=== PATIENT | female | born 1970 | race Caucasian/White ===

== ENCOUNTER 2019-07-19 17:55 | Emergency (ER) | payer MEDICARE, MEDICAID, SELFPAY ==
[2019-07-19] VITALS (7 sets, daily range): BP systolic 152–175; BP diastolic 109–131; PULSE 67–96; RESP 12–20; TEMP 36.7; O2SAT 95–99; BMI 49.6
--- NOTE | 2019-07-19 17:56 | XRR_ITS ---
PROCEDURE INFORMATION: Exam: XR Chest, 1 View Exam date and time: 07/19/2019 8:03 PM Age: 49 years old Clinical indication: Chest pain; Additional info: Cp TECHNIQUE: Imaging protocol: XR of the chest Views: 1 view. COMPARISON: CR Chest 2 views* [id number] 08/06/2015 11:20 PM FINDINGS: Lungs: Unremarkable. No consolidation. Pleural space: Unremarkable. No pleural effusion. No pneumothorax. Heart/Mediastinum: Unremarkable. No cardiomegaly. Bones/joints: Unremarkable. XR/XR chest 1V portable [id number] IMPRESSION: No acute findings.
[2019-07-19 19:18] LABS: Basophils % 0.5 %; Eosinophils # 0.4 10^3/uL (0.0-0.8); Eosinophils % 7.1 %; Hematocrit 45.7 % (37.0-47.0); Lymphocytes % 35.3 %; Mean Corpuscular HGB Conc 32.8 g/dL (30.0-36.0); Mean Corpuscular Hemoglobin 33.6 pg (28.0-34.0); Mean Corpuscular Volume 102.5 fL (81-99); Mean Platelet Volume 11.5 fL (7.4-10.4); Monocytes # 0.5 10^3/uL (0.2-0.9); Monocytes % 8.5 %; Neutrophils # 2.7 10^3/uL (1.8-7.7); Neutrophils % 48.4 %; Nucleated Red Blood Cells % 0 %; Platelet Count 202 10^3/cmm (130-400); Red Blood Count 4.46 10^6/uL (4.1-5.3); Red Cell Distribution Width 12.9 % (12.1-15.1); White Blood Count 5.5 10^3/uL (4.0-10.0)
[2019-07-19 19:29] LABS: Alanine Aminotransferase 85 U/L (0-33); Alkaline Phosphatase 62 IU/L (35-105); Anion Gap 15.1 (5-19); Aspartate Amino Transferase 61 U/L (0-32); Blood Urea Nitrogen 19 mg/dL (6-20); Calcium 9.5 mg/dL (8.5-10.5); Carbon Dioxide 26 mmol/L (22-29); Chloride 105 mmol/L (98-107); Globulin 3.1 g/dL (1.3-4.6); Glomerular Filtration Rate 59.4 mL/min (90-130); Glucose 93 mg/dL (65-115); Potassium 4.1 mmol/L (3.5-5.1); Sodium 142 mmol/L (136-145); Total Bilirubin 0.2 mg/dL (0.15-1.2); Total Protein 7.1 g/dL (6.6-8.7)
[2019-07-19 19:33] LABS: Troponin(5th) Baseline 6 ng/mL (0-10)
[2019-07-19] MEDS: aspirin 81 mg Chew Tablet 324 MG PO (20:03)
[2019-07-19] MEDS: morphine 4 mg/mL SDV 1 mL IVP (20:04)
--- NOTE | 2019-07-19 20:07 | W.ED.CHESTPA ---
HPI - Chest Pain General: Chief Complaint: Chest Pain Stated Complaint: CHEST PAIN, SOB Time Seen by Provider: 07/19/19 18:50 Source: patient Mode of arrival: ambulatory Limitations: no limitations History of Present Illness: HPI narrative: 49-year-old female states she has been having chest pain since 2 days ago. States the pain is been constant in nature that is been sharp. Denies any worsening or improving factors currently. She states it does radiate to her left jaw. She has no history of heart problems. Patient is currently resting comfortably. MD complaint: chest pain Onset (ago): day(s) Timing of current episode: constant Prior episodes: No Onset: during rest Pain location: left chest Pain radiation: jaw/teeth Pain scale (0-10): 4 Quality: sharp Relieving factors: nothing Exacerbating factors: nothing Associated symptoms: Reports dyspnea; Deny abdominal pain, fever(s), nausea or vomiting Review of Systems Const: Denies: fever, chills, body aches or change in appetite Eyes: Denies: blurry vision or eye discomfort ENMT: Denies: throat pain or dental pain Card: Reports: chest pain Resp: Reports: shortness of breath GI: Denies: abdominal pain, nausea, vomiting or diarrhea : Denies: painful urination Musc: Denies: neck pain or back pain Skin/Breast: Denies: rash Neuro: Denies: headache Psych: Denies: depression Roberto Carlos/Lymph: Denies: easy bruising All/Imm: Denies: hives PFSH ED PFSH: Statuses (acute, chronic, etc) shown below reflect problem list status as previously entered and may not be historically accurate Social History Smoking and tobacco status: current every day smoker Physical Exam Const: COMMON NORMALS: no apparent distress, oriented x3 and healthy appearing HENMT: COMMON NORMALS: normocephalic and head/scalp atraumatic HEAD & SCALP: normocephalic and atraumatic Eye: COMMON NORMALS: PERRL and EOMs intact bilaterally PUPIL: Yes PERRL Neck/C-Spine: COMMON NORMALS: full ROM and supple Chest: COMMONS NORMALS: inspection of chest normal and palpation of chest normal Resp: COMMON NORMALS: normal respiratory effort, no retractions, no use of accessory muscles and clear to auscultation bilaterally AUSCULTATION: clear to auscultation bilaterally Cardio: COMMON NORMALS: regular rate, regular rhythm and no murmurs RATE: regular rate RHYTHM: regular rhythm GI: COMMON NORMALS: normal to inspection, nondistended, normoactive bowel sounds, soft to palpation, non-tender and no masses PALPATION: Yes soft Extremity: COMMON NORMALS: normal to inspection and full ROM Neuro: COMMON NORMALS: oriented x3, moves all extremities and no focal motor deficits Psych: COMMON NORMALS: mental status grossly normal, thought process normal and cooperative THOUGHT PROCESS: normal thought process Skin: COMMON NORMALS: no rashes or lesions noted and no wounds GENERAL SKIN EXAM: no rashes or lesions noted Course Vital Signs: Vital signs: Vital Signs Temperature 98.1 F 07/19/19 18:18 Pulse Rate 96 07/19/19 22:17 Respiratory Rate 12 07/19/19 22:17 Blood Pressure 152/109 07/19/19 20:11 Pulse Oximetry 96 07/19/19 22:17 MDM - Chest Pain MDM Narrative: Medical decision making narrative: Patient presents here with chest pain is atypical in nature. Patient's initial and repeat troponins here are negative. Patient does have neck pain as well and has tenderness to palpation over her left neck that is likely muscular in origin. Patient is stable for discharge and is return if worsening. She is to follow-up with her primary doctor in 3 to 4 days. Lab Data: Labs: Lab Results 07/19/19 07/19/19 07/19/19 Range/Units 18:35 18:35 18:35 WBC 5.5 (4.0-10.0) 10^3/ uL RBC 4.46 (4.1-5.3) 10^6/u L Hgb 15.0 (11.5-15.3) g/dL Hct 45.7 (37.0-47.0) % MCV 102.5 H (81-99) fL MCH 33.6 (28.0-34.0) pg MCHC 32.8 (30.0-36.0) g/dL RDW 12.9 (12.1-15.1) % Plt Count 202 (130-400) 10^3/c mm MPV 11.5 H (7.4-10.4) fL Neut % (Auto) 48.4 % Lymph % (Auto) 35.3 % [place] % (Auto) 8.5 % Eos % (Auto) 7.1 % Baso % (Auto) 0.5 % Neut # (Auto) 2.7 (1.8-7.7) 10^3/u L Lymph # (Auto) 2.0 (0.8-4.8) 10^3/u L [place] # (Auto) 0.5 (0.2-0.9) 10^3/u L Eos # (Auto) 0.4 (0.0-0.8) 10^3/u L Baso # (Auto) 0.0 (0.0-0.1) 10^3/u L Nucleated RBC % (a uto) 0 % Nucleated RBCs # 0.0 /100WBC D-Dimer (0-0.59) ug/mIFE U Sodium 142 (136-145) mmol/L Potassium 4.1 (3.5-5.1) mmol/L Chloride 105 (98-107) mmol/L Carbon Dioxide 26 (22-29) mmol/L Anion Gap 15.1 (5-19) BUN 19 (6-20) mg/dL Creatinine 1.0 H (0.5-0.9) mg/dL GFR Calculation 59.4 L (90-130) mL/min Glucose 93 (65-115) mg/dL Calcium 9.5 (8.5-10.5) mg/dL Total Bilirubin 0.2 (0.15-1.2) mg/dL AST 61 H (0-32) U/L ALT 85 H (0-33) U/L Alkaline Phosphata se 62 (35-105) IU/L Troponin T Baselin e 6 (0-10) ng/mL Troponin T [address] [place] (0-10) ng/mL Delta Troponin T (0-10) ABS# Total Protein 7.1 (6.6-8.7) g/dL Albumin 4.0 (3.5-5.2) g/dL Globulin 3.1 (1.3-4.6) g/dL 07/19/19 07/19/19 Range/Units 18:35 21:30 WBC (4.0-10.0) 10^3/ uL RBC (4.1-5.3) 10^6/u L Hgb (11.5-15.3) g/dL Hct (37.0-47.0) % MCV (81-99) fL MCH (28.0-34.0) pg MCHC (30.0-36.0) g/dL RDW (12.1-15.1) % Plt Count (130-400) 10^3/c mm MPV (7.4-10.4) fL Neut % (Auto) % Lymph % (Auto) % [place] % (Auto) % Eos % (Auto) % Baso % (Auto) % Neut # (Auto) (1.8-7.7) 10^3/u L Lymph # (Auto) (0.8-4.8) 10^3/u L [place] # (Auto) (0.2-0.9) 10^3/u L Eos # (Auto) (0.0-0.8) 10^3/u L Baso # (Auto) (0.0-0.1) 10^3/u L Nucleated RBC % (a uto) % Nucleated RBCs # /100WBC D-Dimer 0.34 (0-0.59) ug/mIFE U Sodium (136-145) mmol/L Potassium (3.5-5.1) mmol/L Chloride (98-107) mmol/L Carbon Dioxide (22-29) mmol/L Anion Gap (5-19) BUN (6-20) mg/dL Creatinine (0.5-0.9) mg/dL GFR Calculation (90-130) mL/min Glucose (65-115) mg/dL Calcium (8.5-10.5) mg/dL Total Bilirubin (0.15-1.2) mg/dL AST (0-32) U/L ALT (0-33) U/L Alkaline Phosphata se (35-105) IU/L Troponin T Baselin e (0-10) ng/mL Troponin T [address] [place] 6.24 (0-10) ng/mL Delta Troponin T 0.24 (0-10) ABS# Total Protein (6.6-8.7) g/dL Albumin (3.5-5.2) g/dL Globulin (1.3-4.6) g/dL Imaging Data^: CXR: Attestation: I personally reviewed and interpreted this imaging study as follows: My impression: no acute abnormality EKG Data^: EKG 1: Attestation: I personally reviewed and interpreted this EKG as follows: EKG interpretation date: 07/19/19 Interpretation: nsr hr [address] or t wave abnormalities qrs 77 qtc 393 Discharge Plan Discharge Patient Disposition: Home, Self-Care Clinical Impression: Chest pain Qualifiers: Chest pain type: other chest pain Qualified Code(s): R07.89 - Other chest pain Condition: Stable Prescriptions: New EC-Naprosyn 500 mg tablet,delayed release (DR/EC) 500 mg PO BID PRN (Reason: pain) Qty: 20 RF: 0 Discharge Orders: Discharge Order (Routine); Ordered 07/19/19 Ordered By: Liz Benavides Referrals: Rosette Bah MD [Primary Care Provider] - 4-7 days Discharge Diet: Advance as tolerated Discharge Activity: Resume usual activity Patient Instructions: Chest Pain (ED) Discharge Date/Time: 07/19/19 22:18 Coding Level of Care Code ED Specialty Therapist for Chg Fwd Exam Problem Focused
[2019-07-19 21:02] LABS: D Dimer 0.34 ug/mIFEU (0-0.59)
--- NOTE | 2019-07-19 23:56 | ECG_ITS ---
Measurements Intervals [place] Rate: 90 P: 42 MD: 142 QRS: 24 QRSD: 77 T: 35 QT: 345 QTc: 424 SINUS RHYTHM LOW QRS VOLTAGE IN PRECORDIAL LEADS [QRS DEFLECTION < 1.0 mV IN CHEST LEADS] POSSIBLE ANTERIOR MYOCARDIAL INFARCTION [30 ms Q WAVE IN V3/V4, OR R < 0.2 mV IN V4], PROBABLY OLD No previous ECG available for comparison Electronically Signed On 07-19-2019 20:15:46 LOAN SERVICE OFFICER by Vivian Edwards M.D. [email or web address]
== END 2019-07-19 22:18 | disposition home or self-care (01) ==
PROVIDERS: Emergency Provider Emergency Medicine; Family Provider Family Medicine; PCP Family Medicine
DX: R07.89 Other chest pain (principal); F17.210 Nicotine dependence, cigarettes, uncomplicated
CPT/HCPCS: 36415; 71045; 80053; 84484; 85025; 85378; 93005; 96374; 96375; 99283; 99284; J2270

== ENCOUNTER → 2021-12-12 08:53 | Outpatient (BNVA) | payer MEDICARE, MEDICAID, SELFPAY | PROVIDERS: Family Provider Family Medicine; PCP Family Medicine; Visit Provider Nurse Practitioner Family | DX: Z20.822 Contact with and (suspected) exposure to COVID-19 (principal); J06.9 Acute upper respiratory infection, unspecified; R19.7 Diarrhea, unspecified | CPT/HCPCS: 80053; 87635 ==

== ENCOUNTER 2022-09-19 18:58 | Emergency (ER) | payer MEDICARE, MEDICAID, SELFPAY ==
[2022-09-19 19:02] VITALS: BP 107/88; PULSE 111; RESP 18; TEMP 37.1; O2SAT 93; BMI 51.3
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
[2022-09-19] MEDS: ketorolac 30 mg/mL INJ IVP (20:00)
[2022-09-19] MEDS: orphenadrine 30 mg/mL Inj 2 mL 60 MG IVP (20:00)
[2022-09-19] MEDS: sodium chloride 0.9% 1,000 ML 999 ML IV (20:01)
[2022-09-19 20:04] LABS: Basophils % 0.2 %; Eosinophils # 0.2 10^3/uL (0.0-0.8); Eosinophils % 1.5 %; Hematocrit 42.8 % (37.0-47.0); Hemoglobin 14.1 g/dL (11.5-15.3); Lymphocytes # 1.8 10^3/uL (0.8-4.8); Lymphocytes % 17.6 %; Mean Corpuscular HGB Conc 32.9 g/dL (30.0-36.0); Mean Corpuscular Hemoglobin 32.3 pg (28.0-34.0); Mean Corpuscular Volume 98.2 fl (81-99); Mean Platelet Volume 10.6 fL (7.4-10.4); Monocytes # 0.5 10^3/uL (0.2-0.9); Monocytes % 4.9 %; Neutrophils # 7.57 10^3/uL (1.8-7.7); Neutrophils % 75.4 %; Nucleated Red Blood Cells % 0 %; Platelet Count 186 10^3/cmm (130-400); Red Blood Count 4.36 10^6/uL (4.1-5.3); Red Cell Distribution Width 13.1 % (12.1-15.1)
[2022-09-19 20:07] VITALS: BP 126/97; PULSE 95; RESP 16; O2SAT 95
[2022-09-19 20:19] LABS: INR 0.99 (0.8-1.2)
[2022-09-19 20:23] LABS: Alanine Aminotransferase 74 U/L (0-33); Albumin Level 3.8 g/dL (3.5-5.2); Alkaline Phosphatase 64 U/L (35-105); Anion Gap 14.9 (5-19); Aspartate Amino Transferase 86 U/L (0-32); Blood Urea Nitrogen 15 mg/dL (6-20); Calcium 8.7 mg/dL (8.5-10.5); Carbon Dioxide 24 mmol/L (22-29); Chloride 102 mmol/L (98-107); Globulin 3.1 g/dL (1.3-4.6); Glomerular Filtration Rate 52.6 mL/min (90-130); Glucose 134 mg/dL (65-115); Osmolality Calculated 287 mOsm/kg (285-295); Potassium 3.9 mmol/L (3.5-5.1); Sodium 137 mmol/L (136-145); Total Bilirubin 0.4 mg/dL (0.15-1.2); Total Protein 6.9 g/dL (6.6-8.7)
[2022-09-19 20:35] VITALS: RESP 16
[2022-09-19] MEDS: morphine 4 mg/mL SDV 1 mL IVP (20:35)
[2022-09-19] MEDS: tetanus-diphtheria tox (adult) 0.5 mL SDV IM (20:47)
[2022-09-19 20:53] VITALS: BP 124/70; PULSE 74; RESP 16; O2SAT 96
== END 2022-09-19 21:06 | disposition home or self-care (01) ==
PROVIDERS: Emergency Provider Emergency Medicine; PCP Family Medicine
DX: Z04.1 Encounter for examination and observation following transport accident (principal); V47.6XXA Car passenger injured in collision with fixed or stationary object in traffic accident, initial encounter; Z23 Encounter for immunization
CPT/HCPCS: 70450; 71250; 72125; 72128; 72131; 73130; 73562; 80053; 85025; 85610; 90471; 90714; 96361; 96374; 96375; 99285; J1885; J2270; J2360; J7030

== ENCOUNTER → 2023-01-13 09:05 | Outpatient (BNVA) | payer MEDICARE, MEDICAID, SELFPAY | PROVIDERS: PCP Family Medicine; Visit Provider Nurse Practitioner Family | DX: Z13.6 Encounter for screening for cardiovascular disorders (principal) | CPT/HCPCS: 80053; 80061; 83036; 84443; 85025 ==

== ENCOUNTER → 2023-01-15 14:34 | Outpatient (BNVA) | payer MEDICARE, MEDICAID, SELFPAY | PROVIDERS: PCP Family Medicine; Referring Provider Nurse Practitioner Family; Visit Provider Physician Assistant | DX: M47.814 Spondylosis without myelopathy or radiculopathy, thoracic region (principal); M54.50 Low back pain, unspecified | CPT/HCPCS: 72070; 72110; 99214 ==

== ENCOUNTER 2023-01-20 14:54 | Outpatient (CLI) | payer MEDICARE, MEDICAID, SELFPAY ==
--- NOTE | 2023-01-20 15:31 | MM_ITS ---
WS: [id number] DIAGNOSTIC BILATERAL DIGITAL BREAST TOMOSYNTHESIS MAMMOGRAPHY WITH CAD HISTORY: LESIONS BILAT BREASTS COMPARISON: None available. TECHNIQUE: Bilateral craniocaudad, mediolateral oblique, and mediolateral views are submitted with to mosrenny and SM. Computer aided detection utilized. Breast composition: The breasts are almost entirely fatty. There are benign calcifications in each br east. No breast masses or nodules are identified. The nodules described by the patient are all very s uperficial. There is no apparent soft tissue thickening or skin thickening by mammography. No additio nal imaging necessary of the breast. IMPRESSION: MM/[place] [id number] BI-RADS: 2-Benign FOLLOW UP: 1 Year Follow-up
== END 2023-01-20 14:55 | disposition home or self-care (01) ==
LOC: RAD 15:02 → MOBLMAM 15:04 → RAD 15:22
PROVIDERS: PCP Family Medicine; Visit Provider Nurse Practitioner Family
DX: N64.89 Other specified disorders of breast (principal)
CPT/HCPCS: 77062; G0279

== ENCOUNTER → 2023-01-23 08:46 | Outpatient (BNVA) | payer MEDICARE, MEDICAID, SELFPAY | PROVIDERS: PCP Nurse Practitioner Family; Visit Provider Surgery | DX: R10.9 Unspecified abdominal pain; E66.9 Obesity, unspecified; K21.9 Gastro-esophageal reflux disease without esophagitis; K59.00 Constipation, unspecified | CPT/HCPCS: 99204 ==

== ENCOUNTER 2023-03-13 07:48 | Day surgery (SDC) | payer MEDICARE, MEDICAID, SELFPAY ==
[2023-03-11 14:03] VITALS: BMI 62.5
--- NOTE | 2023-03-13 06:44 | W.PM.OPSFHP ---
Same Day Surgery H&P Indication for Procedure/HPI DATE OF PROCEDURE: March 13, 2023 CHIEF COMPLAINT/INDICATIONFOR SURGICAL PROCEDURE: GERD and need for screening colonoscopy PREOP DIAGNOSIS: GERD and need for screening colonoscopy PLANNED PROCEDURE: Operation Date: 03/13/23 09:00 Proposed Procedures p [id number] egd, [id number] colon Z12.11,R10.9(Not Applicable) - Memo Stewart MD s Colonoscopy(Not Applicable) - Memo Stewart MD Medications/Allergies* Allergies/Adverse Reactions Allergy/AdvReac Type Severity Reaction Status Date / Time penicillin V Allergy ADR-Faintin Verified 01/23/23 08:49 g Penicillins Allergy ADR-Faintin Verified 01/23/23 08:49 g Pertinent History/Comorbid Conditions* Family History (Updated 01/23/23 @ 08:54 by NEFTALY Ren) Diabetes Father Mother Heart disease Father Mother Cancer Grandfather lung cancer Social History Smoking and tobacco status: current every day smoker Second hand smoke exposure: No Smoking risk assessment/counseling performed?: No Alcohol intake: never Desire information about alcohol rehabilitation?: No Counseling given: No Substance/Drug Use: never Desire information about substance/drug rehabilitation?: No Counseling given: No Adopted: No Caregiver/support person: No Lives independently: Yes Household members: spouse Housing: House Marital status: Number of children: 2 Highest education level completed: 11th Grade service: No Current occupational status: disabled Pertinent Exam Findings alert, oriented x 3, clear to auscultation bilaterally and regular rate & rhythm Recommendations Surgery/Procedure today Coding Level of Care Code Acute Code for Chg Fwd Diagnoses
--- NOTE | 2023-03-13 08:00 | P.ANESASSM_ITS ---
Pre-Anesthetic Assessment Height/Weight: Height 1.6 m Weight 160.118 kg Temp Pulse Resp BP Pulse Ox O2 Del Method 98.0 F 101 H 18 151/108 96 Room Air 03/13/23 08:12 03/13/23 08:12 03/13/23 08:12 03/13/23 08:12 03/13/23 08:12 03/13/23 08:12 Preop Diagnosis: GERD and need for screening colonoscopy Operation Date: 03/13/23 08:50 Proposed Procedures p [id number] egd, [id number] colon Z12.11,R10.9(Not Applicable) - Memo Stewart MD s Colonoscopy(Not Applicable) - Memo Stewart MD Familial anesthetic complications: none Was Beta Terrie taken within 24 hours: N/A Was Clonidine taken within 24 hours: N/A Last intake: Intake Last Liquid Date 03/12/23 Last Liquid Time 23:00 Last Solid Date 03/11/23 Last Solid Time 19:00 Social Tobacco (1 ppd, smoked at midnight) and No alcohol Exam alert and oriented x 3 Airway Submandibular: within normal limits Cervical ROM: within normal limits Mallampati: Class III Dentition: full Pulmonary None reported CV/HEM None reported None reported Hepatic None reported GI Gastroesophageal Reflux Disease and Hiatal Hernia Metabolic Morbid Obesity [facility]/skel None reported Neuropsych None reported Anesthetic Plan ASA status: 3 Anesthesia: Anesthesia Evaluation, General and MAC Medications/Allergies Home Medications Medication Instructions Recorded Confirmed Last Taken Type cetirizine 10 mg capsule (Zyrtec) 10 mg PO DAILY #30 caps 12/30/22 03/11/23 03/11/23 Rx chlorhexidine gluconate 4 % See Rx Instructions topical 12/30/22 03/11/23 Unknown Rx topical liquid (Hibiclens) .COMPLEX #473 mL cyclobenzaprine 7.5 mg tablet 7.5 mg PO Q8H PRN muscle spasm #60 12/30/22 03/11/23 Unknown Rx tabs fluticasone propionate 50 2 spray intranasal BID #16 grams 12/30/22 03/11/23 03/11/23 Rx mcg/actuation nasal spray,suspension (Flonase Allergy Relief) mupirocin calcium 2 % topical cream 1 applic topical TID #30 grams 12/30/22 03/11/23 03/08/23 Rx clindamycin HCl 300 mg capsule 300 mg PO TID #30 caps 01/13/23 03/11/23 03/02/23 Rx prednisone 20 mg tablet 20 mg PO DAILY #15 tabs 01/15/23 03/11/23 02/24/23 Rx pantoprazole 40 mg tablet,delayed 40 mg PO BID 6 weeks #84 tabs 01/23/23 03/11/23 02/23/23 Rx release (Protonix) diazepam 5 mg tablet (Valium) 5 mg PO ONCE PRN anxiety #3 tabs 02/13/23 03/11/23 Unknown Rx Allergies Allergy/AdvReac Type Severity Reaction Status Date / Time penicillin V Allergy ADR-Faintin Verified 01/23/23 08:49 g Penicillins Allergy ADR-Faintin Verified 01/23/23 08:49 g Current Medications Generic Name Dose Route Start Last Admin Trade Name Freq PRN Reason Stop Dose Admin Sodium Chloride 1,000 mls @ 30 mls/hr 03/13/23 08:00 03/13/23 08:13 Sodium Chloride 0.9% IV 30 mls/hr .Q24H WALDO Administration PFSH Anesthesia Family History (Updated 01/23/23 @ 08:54 by NEFTALY Ren) Father Diabetes Heart disease Mother Diabetes Heart disease Grandfather Cancer lung cancer Social History Smoking and tobacco status: current every day smoker Second hand smoke exposure: No Smoking risk assessment/counseling performed?: No Alcohol intake: never Desire information about alcohol rehabilitation?: No Counseling given: No Substance/Drug Use: never Desire information about substance/drug rehabilitation?: No Counseling given: No Adopted: No Caregiver/support person: No Lives independently: Yes Household members: spouse Housing: House Marital status: Number of children: 2 Highest education level completed: 11th Grade service: No Current occupational status: disabled Data Anesthesia Cardiac Studies: No Data to Display
[2023-03-13 08:12] VITALS: BP 151/108; PULSE 101; RESP 18; TEMP 36.7; O2SAT 96
[2023-03-13] MEDS: sodium chloride 0.9% 1,000 ML 30 ML IV (08:13)
[2023-03-13 09:08] VITALS: BP 90/78; PULSE 95; RESP 16; TEMP 36.3; O2SAT 95
[2023-03-13 09:15] VITALS: BP 106/76; PULSE 89; RESP 16; O2SAT 96
[2023-03-13 09:20] VITALS: BP 119/74; PULSE 84; RESP 16; O2SAT 96
[2023-03-13 09:30] VITALS: BP 107/84; PULSE 81; RESP 18; O2SAT 96
--- NOTE | 2023-03-13 09:45 | ANE.PACU2 ---
Inpatient post-anesthesia follow up: Airway intact: Yes Vital signs: Temperature 97.4 F Pulse Rate 81 Respiratory Rate 18 Blood Pressure 107/84 Pulse Oximetry 96 Oxygen Delivery Me thod Room Air Oxygen Flow Rate 6 Fraction of Inspir ed Oxygen Hydration adequate: Yes Nausea and vomiting: No Pain level: 1 Mental status: Baseline
== END 2023-03-13 10:00 | disposition home or self-care (01) ==
PROVIDERS: PCP Nurse Practitioner Family; Visit Provider Surgery
PROC: 0DJ08ZZ Inspection of Upper Intestinal Tract, Via Natural or Artificial Opening Endoscopic (ICD-10-PCS; CPT 43235; principal; 2023-03-13 08:50)
PROC: 0DJD8ZZ Inspection of Lower Intestinal Tract, Via Natural or Artificial Opening Endoscopic (ICD-10-PCS; CPT 45378; 2023-03-13 08:50)
DX: Z12.11 Encounter for screening for malignant neoplasm of colon (principal); K21.00 Gastro-esophageal reflux disease with esophagitis, without bleeding; F17.200 Nicotine dependence, unspecified, uncomplicated; K29.50 Unspecified chronic gastritis without bleeding; K57.30 Diverticulosis of large intestine without perforation or abscess without bleeding
CPT/HCPCS: 43239; 45378; 88305; 88342; G0121; J2704; J7030

== ENCOUNTER → 2023-04-13 12:43 | Outpatient (BNVA) | payer MEDICARE, MEDICAID, SELFPAY | PROVIDERS: PCP Nurse Practitioner Family; Visit Provider Surgery | DX: Z09 Encounter for follow-up examination after completed treatment for conditions other than malignant neoplasm | CPT/HCPCS: 99213 ==

== ENCOUNTER 2023-12-27 13:19 | Emergency (ER) | payer MEDICARE, MEDICAID, SELFPAY ==
[2023-12-27 13:55] VITALS: BP 162/107; PULSE 81; RESP 20; TEMP 36.8; O2SAT 97; BMI 48.6
--- NOTE | 2023-12-27 13:59 | ED_ITS ---
HPI - Ear Problem General: Chief complaint: Ear Stated complaint: left ear pain, says she cannot hear out of it Time Seen by Provider: 12/27/23 13:23 History of Present Illness: 53-year-old female comes in today for co mplaints of ear discomfort for the last 2 weeks. Patient reports today she had increasing difficulty of hearing out of the left ear which prompted her to come to the emergency department. Patient does have a history of seasonal allergies and uses Zyrtec and fluticasone. Patient has not been taking this medication at this time. Patient denies any other chronic medical problems or routine medicines at this time. Associated symptoms: Reports ear or mastoid pain Review of Systems General: Reports: 10 or more systems reviewed and unremarkable except in HPI and below ENMT: Reports: ear or mastoid pain PFSH ED PFSH: Family History Father Diabetes Heart disease Mother Diabetes Heart disease Grandfather Cancer lung cancer Social History Smoking and tobacco/nicotine status: current every day tobacco/nicotine user Second hand smoke exposure: No Alcohol intake: never Substance/Drug Use: never Adopted: No Caregiver/support person: No Lives independently: Yes Household members: spouse Housing: House Marital status: Number of children: 2 Highest education level completed: 11th Grade service: No Current occupational status: disabled Physical Exam Const: COMMON NORMALS: alert HENMT: COMMON NORMALS: normocephalic HEAD & SCALP: normocephalic TYMPANIC MEMBRANE: TM abnormal TM laterality: left Details: erythematous and bilateral bulging and dull Neck/C-Spine: COMMON NORMALS: full ROM OTHER: Left side anterior tender lymphadenopathy Resp: COMMON NORMALS: normal respiratory effort Cardio: COMMON NORMALS: regular rate RATE: regular rate GI: COMMON NORMALS: Soft to palpation and non-tender PALPATION: Yes Soft to palpation Back/Pelvis: COMMON NORMALS: thoracic and lumbar spine normal to inspection Extremity: COMMON NORMALS: full ROM Neuro: SENSORIUM/ORIENTATION: Yes alert Skin: COMMON NORMALS: turgor normal GENERAL SKIN EXAM: turgor normal Course Vital Signs: Vital signs: Vital Signs Temperature 98.2 F 12/27/23 13:55 Pulse Rate 81 07/21/24 13:55 Respiratory Rate 20 H 12/27/23 13:55 Blood Pressure 162/107 12/27/23 13:55 Pulse Oximetry 97 12/27/23 13:55 Oxygen Delivery Me thod Room Air 12/27/23 13:55 MDM - Ear Medical Decision Making 53-year-old female comes in today with complaints of ear discomfort. On exam mariel rodriguez has bilateral dull bulging TMs. Patient has increased erythema to the left TM. Patient has some cobblestoning posterior pharynx. Lungs are clear to auscultation. Vital signs are normal except for some elevated blood pressure. Differential diagnosis includes but not limited to otitis media, rhinosinusitis, upper respiratory infection. Patient be treated with doxycycline and a dose of dexamethasone. Patient will return to using her Flonase spray. Encourage fluids rest and follow-up with primary care. Patient reported understanding. No radiology studies performed this visit Discharge Plan Discharge Patient Disposition: Home Clinical Impression: Otitis media Qualifiers: Otitis media type: suppurative Chronicity: acute Laterality: bilateral Recurrence: not specified as recurrent Spontaneous tympanic membrane rupture: without spontaneous rupture Qualified Code(s): H66.003 - Acute suppurative otitis media without spontaneous rupture of ear drum, bilateral Condition: Stable Prescriptions: New doxycycline hyclate 100 mg capsule 100 mg PO BID 10 Days Qty: 20 0RF No Action mupirocin calcium 2 % cream 1 applic topical TID Qty: 30 11RF Rx Instructions: large area breast cyclobenzaprine 7.5 mg tablet 7.5 mg PO Q8H PRN (Reason: muscle spasm) Qty: 60 2RF Zyrtec 10 mg capsule 10 mg PO DAILY Qty: 30 5RF fluticasone propionate [Flonase Allergy Relief] 50 mcg/actuation spray,suspension 2 spray intranasal BID Qty: 16 5RF Rx Instructions: administer into each nostril pantoprazole [Protonix] 40 mg tablet,delayed release (DR/EC) 40 mg PO BID 150 Days Qty: 300 1RF metoclopramide HCl [Reglan] 10 mg tablet 10 mg PO Q6H PRN (Reason: nausea and vomiting) Qty: 20 0RF prednisone 20 mg tablet 20 mg PO DAILY Qty: 15 0RF Rx Instructions: 60mg x3days, 40mg x2 days, 20 mg x2days diazepam [Valium] 5 mg tablet 5 mg PO ONCE PRN (Reason: anxiety) Qty: 3 0RF Rx Instructions: 1 TAB PO 1hr before Scan and 1 tab at MRI Discharge Orders: Discharge ED (Routine); Ordered 12/27/23 Ordered By: Syd Marrero Referrals: Isamar Castillo FNP-C [Primary Care Provider] - Discharge Diet: Usual diet Discharge Activity: Increase activity as tolerated Patient Instructions: Ear Infection (ED) Activity Restrictions/Additional Instructions: Follow-up with primary care in 1 week. Thank you for choosing [facility] for your healthcare needs today. Please realize that you were seen in the emergency department and that we are providing you with an emergency medical screening exam and this may not be a complete and all exclusive of all testing and/or medical workup we may need to determine your element or severity of your illness. It is very important that you follow-up as instructed with your primary care provider or specialist for the additional evaluation and to discuss your medical treatment plan. You may return to the emergency department should you have concerns or if your condition changes or worsens in any way. Coding Level of Care Code ED Stucco Worker for Rob French
[2023-12-27] MEDS: doxycycline 100 mg Tablet PO (14:34)
[2023-12-27] MEDS: dexamethasone 10 mg/mL INJ IM (14:35)
[2023-12-27 14:41] VITALS: BP 155/98; PULSE 79; RESP 16; TEMP 36.8; O2SAT 98
== END 2023-12-27 14:38 | disposition home or self-care (01) ==
PROVIDERS: Emergency Provider Nurse Practitioner Family; PCP Nurse Practitioner Family
DX: H66.003 Acute suppurative otitis media without spontaneous rupture of ear drum, bilateral (principal); Z72.0 Tobacco use
CPT/HCPCS: 96372; 99284; J1100

== ENCOUNTER → 2024-01-06 10:05 | Outpatient (BNVA) | payer MEDICARE, MEDICAID, SELFPAY | PROVIDERS: PCP Nurse Practitioner Family; Visit Provider Nurse Practitioner Family | DX: Z13.6 Encounter for screening for cardiovascular disorders (principal); E66.9 Obesity, unspecified; K21.9 Gastro-esophageal reflux disease without esophagitis; K59.00 Constipation, unspecified | CPT/HCPCS: 80053; 80061; 83036; 84443; 85025 ==

== ENCOUNTER 2024-02-09 13:45 | Outpatient (CLI) | payer MEDICARE, MEDICAID, SELFPAY ==
--- NOTE | 2024-02-09 13:45 | USCV_ITS ---
Donna Fabian Age: 53 Gender: F : 1970 Exam Date: 02/09/2024 14:08 Ordering Phys: Isamar Castillo [employer]ATION [employer]W LEADER-Rebeca Technologist: Inés Vale Exam Location: [facility] [place] Indication: CHEST PAIN BP: / HR: 66 Rhythm: Sinus Technical Quality: Adequate MEASUREMENTS (Male / Female) Normal Values 2D ECHO LV Diastolic Diameter PLAX 3.3 cm 4.2 - 5.9 / 3.9 - 5.3 cm IVS Diastolic Thickness 1.3 cm 0.6 - 1.0 / 0.6 - 0.9 cm IVS Systolic Thickness 1.6 cm LVPW Diastolic Thickness 1.7 cm 0.6 - 1.0 / 0.6 - 0.9 cm LVPW Systolic Thickness 1.9 cm LVOT Diameter 2.1 cm LV Ejection Fraction 2D Teich 57.6 % LV Ejection Fraction MOD 4C 59.9 % LV Ejection Fraction MOD 2C 8.5 % LV Ejection Fraction 2C AL 10.2 % LA Diameter 3.8 cm RA Systolic Volume 4C AL 21.2 ml RA Systolic Volume 4C MOD 20.2 ml Aorta at Sinotubular Diameter 3.4 cm IVC Diameter 1.9 cm M-MODE LA Ao Ratio MM 1.1 AV Cusp Separation MM 1.9 cm DOPPLER AV Peak Velocity 195.0 cm/s LVOT Peak Velocity 117.0 cm/s AV Area Cont Eq vti 2.9 cm squared AV Area Cont Eq pk 2.0 cm squared MV Area PHT 3.7 cm squared Mitral E to A Ratio 0.9 TV Peak Velocity 133.0 cm/s TR Peak Velocity 149.0 cm/s TR Peak Gradient 8.9 mmHg TR Mean Velocity 101.0 cm/s TR Mean Gradient 4.5 mmHg TR Velocity Time Integral 34.9 cm TV Peak E Velocity 4.0 cm/s Right Atrial Pressure 3.0 mmHg Pulmonary Artery Systolic Pressu 11.9 mmHg PV Peak Velocity 98.7 cm/s FINDINGS Left Ventricle Normal left ventricular size and systolic function, EF around 58%. No regional wall motion abnormalities. Segmental wall motion analysis somewhat difficult because of the poor ultrasonic windows Right Ventricle Possibly normal RV size and ejection fraction. Right Atrium Appears to be of normal size Left Atrium Appears to be of normal size Mitral Valve No gross abnormality noted Aortic Valve Minimally thickened aortic valve Tricuspid Valve No gross abnormality noted Pulmonic Valve Pulmonic valve not well visualized. Pericardium No pericardial effusion. Aorta Mild aortic dilatation of the sinotubular junction 3.4 cm mildly dilated ascending aorta. 3.9 cm IVC Normal inferior vena cava. CONCLUSIONS Normal left ventricular size and systolic function, EF around 58%. No regional wall motion abnormalities. Segmental wall motion analysis somewhat difficult because of the poor ultrasonic windows. Possibly normal chamber sizes. No gross valvular abnormalities noted. The color-flow Doppler studies are suboptimal quality because of the poor Doppler signals There is no pericardial effusion. Dr Vivian Edwards MD FACC (Electronically Signed) Final Date: 11 February 2024 08:48 S
== END 2024-02-09 13:54 | disposition home or self-care (01) ==
PROVIDERS: PCP Nurse Practitioner Family; Visit Provider Nurse Practitioner Family
DX: M79.89 Other specified soft tissue disorders (principal); R07.9 Chest pain, unspecified
CPT/HCPCS: 93306

== ENCOUNTER 2024-03-09 10:39 | Outpatient (CLI) | payer MEDICARE, MEDICAID, SELFPAY ==
--- NOTE | 2024-03-09 11:00 | MR_ITS ---
WS: [id number] MRI LEFT KNEE NONCONTRAST TECHNIQUE: Axial PD, coronal PD fat sat, coronal PD, sagittal PD, and sagittal PD fat-sat images obta ined. CLINICAL INFORMATION: M25.569 - Pain in unspecified knee COMPARISON: None. FINDINGS: Distal quadriceps and patella tendons are intact. Hypertrophic patella. Normal ACL and PCL. Tiny smal l suprapatellar effusion. Large lobulated popliteal cyst measuring 2.1 x 2.2 x 7.5 cm AP by transvers e x craniocaudal. Prepatellar and infrapatellar soft tissue edema. Lateral subluxation of the patella . Some this may be due to positioning. Recommend correlation for patellar instability. Medial and lat eral patellar retinaculum appear grossly intact. 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 ACL and PCL appear intact. Chronic thinning of the medial and lateral meniscus. No acute appearing me niscal tears. Medial and lateral collateral ligaments appear intact. Normal popliteus. MR/MR knee LT wo con* [id number] IMPRESSION: 1. Large lobulated popliteal cyst measuring 2.1 x 2.2 x 7.5 cm AP by transvers e by craniocaudal. 2. Small suprapatellar effusion with lateral subluxation of the patella. Recom mend correlation for patellar instability. Small suprapatellar effusion. 3. 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 4. ACL and PCL appear intact. 5. Chronic thinning of the medial and lateral meniscus. No acute appearing men iscal tears. Outbridge grading: grade III: partial-thickness cartilage loss with focal ulcer ation
== END 2024-03-09 10:40 | disposition home or self-care (01) ==
LOC: RAD 10:40
PROVIDERS: PCP Nurse Practitioner Family; Visit Provider Nurse Practitioner Family
DX: M22.42 Chondromalacia patellae, left knee (principal); M71.22 Synovial cyst of popliteal space [Baker], left knee; M25.462 Effusion, left knee
CPT/HCPCS: 73721

== ENCOUNTER → 2024-04-12 13:43 | Outpatient (BNVA) | payer MEDICARE, MEDICAID, SELFPAY | PROVIDERS: PCP Nurse Practitioner Family; Visit Provider Internal Medicine Cardiovascular Disease | DX: I49.8 Other specified cardiac arrhythmias (principal); R94.31 Abnormal electrocardiogram [ECG] [EKG]; R07.9 Chest pain, unspecified | CPT/HCPCS: 93005 ==

== ENCOUNTER → 2024-04-18 14:53 | Outpatient (BNVA) | payer MEDICARE, MEDICAID, SELFPAY | PROVIDERS: PCP Nurse Practitioner Family; Visit Provider Specialist | DX: M25.562 Pain in left knee (principal); M76.52 Patellar tendinitis, left knee; E66.01 Morbid (severe) obesity due to excess calories; Z68.44 Body mass index [BMI] 60.0-69.9, adult | CPT/HCPCS: 73560; 73565; 99205 ==

== ENCOUNTER → 2024-08-08 11:11 | Outpatient (BNVA) | payer MEDICARE, MEDICAID, SELFPAY | PROVIDERS: PCP Nurse Practitioner Family; Visit Provider Nurse Practitioner Family | DX: K59.00 Constipation, unspecified (principal); I10 Essential (primary) hypertension; E78.5 Hyperlipidemia, unspecified; R73.09 Other abnormal glucose | CPT/HCPCS: 80053; 80061; 83036; 84443; 85025 ==

== ENCOUNTER 2024-08-16 08:30 | Outpatient (CLI) | payer MEDICAID, MEDICARE, SELFPAY ==
--- NOTE | 2024-08-16 08:30 | US_ITS ---
WS: [id number] RIGHT UPPER QUADRANT ULTRASOUND HISTORY: R74.8 - Abnormal levels of other serum enzymes COMPARISON: None available. Liver: 18.8 cm in length. Mildly enlarged heterogeneous liver. The entire liver is not very well visualized due to body habitus. There does appear to be hepatic steatosis. Mass would be difficult to exclude. Portal Vein: Normal hepatopetal flow with monophasic waveform. Gallbladder: Prior cholecystectomy. CBD: Not well visualized. Pancreas: Not visualized. Right kidney: 10.2 cm in length. Poorly visualized. No hydronephrosis. Aorta and IVC: Not visualized. No ascites. US/US liver [id number] IMPRESSION: 1. Exam limited by body habitus. 2. Prior cholecystectomy. 3. Mild hepatic enlargement with hepatic steatosis.
== END 2024-08-16 08:31 | disposition home or self-care (01) ==
LOC: RAD 08:39
PROVIDERS: PCP Nurse Practitioner Family; Visit Provider Nurse Practitioner Family
DX: R74.8 Abnormal levels of other serum enzymes (principal); Z90.49 Acquired absence of other specified parts of digestive tract; R16.0 Hepatomegaly, not elsewhere classified; K76.0 Fatty (change of) liver, not elsewhere classified
CPT/HCPCS: 76705

== ENCOUNTER 2024-10-11 12:45 | Emergency (ER) | payer MEDICARE, MEDICAID, SELFPAY ==
[2024-10-11 13:08] VITALS: BP 139/82; PULSE 101; RESP 22; TEMP 36.7; O2SAT 96
--- NOTE | 2024-10-11 13:26 | USCV_ITS ---
Donna Fabian Age: 54 Gender: F : 1970 Exam Date: 10/11/2024 15:32 Ordering Phys: Dunia Phillips Technologist: KINZA [place] [facility] [place]: LLE Pain HISTORY: Lower extremity pain. PROCEDURES: Venous duplex imaging was performed in only the left lower extremity. The following venous structures were evaluated: common femoral vein, profunda vein, proximal portion of the greater saphenous vein, superficial femoral vein, and the popliteal vein. In addition, the posterior tibial and peroneal trunk were evaluated. Serial compression, augmentation maneuvers, and spectral Doppler flow evaluation were performed. FINDINGS: No evidence of DVT seen in any vessel visualized at this time. CONCLUSIONS No evidence of left lower extremity DVT. 4.3 x 1.4cm LEFT popliteal cyst Kareem Jonas MD (Electronically Signed) Final Date: 11 Oct 2024 16:15 S
--- NOTE | 2024-10-11 13:28 | ED_ITS ---
HPI - Extremity Problem General: Chief complaint: Extremity Injury, Lower Stated complaint: Lt foot swollen Time Seen by Provider: 10/11/24 13:15 Source: patient Mode of arrival: ambulatory Limitations: no limitations History of Present Illness: Patient is a 54-year-old female presents to ED today with a complaint of left foot swelling but also feels like maybe her lower leg is swollen as well. Symp toms have been present over the past 3 days or so. She also has some intermittent paresthesias to the leg. She states sometimes she will notice color changes to the foot that are intermittent. She states she is concerned as her friend told her she could have a blood clot. She has not noticed any coolness or pallor to the leg. She has chronic back pain currently at baseline. No recent surgeries or prolonged periods of inactivity. She is morbidly obese with a BMI of 63.8. MD Complaint: extremity swelling Onset (ago): day(s) Pain Consistency: constant Location: left and lower extremity Radiation: none Relieving factors: nothing Exacerbating factors: nothing Associated symptoms: Reports no associated symptoms; Deny chest pain or fever(s) Related Data Previous Rx's ?Medication ?Instructions ?Recorded cetirizine 10 mg capsule (Zyrtec) 10 mg PO DAILY #30 c aps 01/06/24 isosorbide mononitrate 30 mg 15 mg (1/2 x 30 mg) PO DA PRABHJOT #45 04/12/24 tablet,extended release 24 hr tabs metoprolol succinate 25 mg 25 mg PO DAILY #90 tabs 10/29 tablet,extended release 24 hr meloxicam 15 mg tablet 15 mg PO DAILY #30 tabs 04/08 07/01 furosemide 20 mg tablet (Lasix) 20 mg PO DAILY PRN mehnaz ma #30 tabs 08/08/24 nitroglycerin 0.4 mg sublingual 0.4 mg sublingual Q5M PRN chest 08/08/24 tablet pain #30 tabs pantoprazole 40 mg tablet,delayed 40 mg PO DAILY #30 t abs 08/08/24 release (Protonix) atorvastatin 40 mg tablet 40 mg PO DAILY #30 tabs 10/30 levothyroxine 75 mcg capsule 75 mcg PO DAILY #30 caps 08/10/24 Allergies Allergy/AdvReac Type Severity Reaction Status Date / Time penicillin V Allergy ADR-Faintin Verified 08/08/24 10:13 g Penicillins Allergy ADR-Faintin Verified 08/08/24 10:13 g Review of Systems Const: Denies: fever(s), chills, body aches, fatigue or malaise Card: Denies: chest pain Resp: Denies: dyspnea Musc: Reports: back pain (chronic) and extremity swelling; Denies: neck pain, joint pain, joint swelling, joint redness, joint warmth, joint stiffness, limited range of motion, muscle cramps or muscle weakness Skin/Breast: Denies: erythema Neuro: Reports: sensory changes (intermittent paresthesias left lower leg/foot); Denies: headache(s), weakness in extremities or difficulty walking PFSH ED PFSH: Medical History Hypothyroidism Hyperlipemia Surgical History Hx of breast reduction, elective Hx of cholecystectomy Hx of appendectomy History of ankle surgery Right History of esophagogastroduodenoscopy (EGD) 10 yrs ago Family History Father Diabetes Heart disease Mother Diabetes Heart disease Grandfather Cancer lung cancer Social History Smoking and tobacco/nicotine status: current every day tobacco/nicotine user Second hand smoke exposure: No Alcohol intake: never Substance/Drug Use: never Adopted: No Caregiver/support person: No Lives independently: Yes Household members: spouse Housing: House Marital status: Number of children: 2 Highest education level completed: 11th Grade service: No Current occupational status: disabled Physical Exam Const: COMMON NORMALS: no acute distress, patient oriented x3, no limitations, alert and well nourished GENERAL APPEARANCE: cooperative NUTRITIONAL APPEARANCE: obese morbidly obese (BMI 63.8) ORIENTATION/CONSCIOUSNESS: Yes awake, Yes oriented to person, Yes oriented to place and Yes oriented to time Resp: COMMON NORMALS: normal respiratory effort and clear to auscultation bilaterally AUSCULTATION: clear to auscultation bilaterally Cardio: COMMON NORMALS: regular rate and regular rhythm RATE: regular rate RHYTHM: regular rhythm Back/Pelvis: THORACIC SPINE/UPPER BACK: No thoracic spinal tenderness and No paraspinal muscle tenderness LUMBAR SPINE/LOWER BACK: No lumbar spinal tenderness and Yes paraspinal muscle tenderness PELVIS: Yes buttocks normal SACRUM: no tenderness COCCYX: no tenderness Extremity: COMMON NORMALS: full ROM, capillary refill normal, no joint enlargement and no calf tenderness GENERAL: Yes normal exam except as noted OTHER: mild edema dorsal L foot; edema to lower leg hard to appreciate given body habitus; no color/temp changes when compared to R LE; DP/PT pulses intact, brisk cap refill; negative Sara's Neuro: COMMON NORMALS: patient oriented x3, moves all extremities, no focal motor deficits, no sensory deficits noted and gait normal SENSORIUM/ORIENTATION: Yes alert, Yes oriented to person, Yes oriented to place and Yes oriented to time Course 2 Vital Signs: Vital signs: Vital Signs Temperature 98.1 F 10/11/24 13:08 Pulse Rate 101 H 10/11/24 13:08 Respiratory Rate 22 H 10/11/24 13:08 Blood Pressure 139/82 10/11/24 13:08 Pulse Oximetry 96 10/11/24 13:08 Oxygen Delivery Me thod Room Air 10/11/24 13:08 MDM - Extremity (Nontraumatic) Medical Decision Making US negative for DVT. Patient will be allowed discharge with recommendations to follow-up with primary care. Return to ED precautions discussed. Medical Records I reviewed the patient's medical records. XR interpretation done by ED provider, pending radiology final review (per US shira Son-negative for DVT) Discharge Plan Discharge Patient Disposition: Home Clinical Impression: Edema of left foot Condition: Stable Prescriptions: No Action Zyrtec 10 mg capsule 10 mg PO DAILY Qty: 30 5RF meloxicam 15 mg tablet 15 mg PO DAILY Qty: 30 2RF Rx Instructions: Take 1 tablet daily. metoprolol succinate 25 mg tablet extended release 24 hr 25 mg PO DAILY Qty: 90 3RF isosorbide mononitrate 30 mg tablet extended release 24 hr 15 mg PO DAILY Qty: 45 3RF pantoprazole [Protonix] 40 mg tablet,delayed release (DR/EC) 40 mg PO DAILY Qty: 30 2RF nitroglycerin 0.4 mg tablet, sublingual 0.4 mg sublingual Q5M PRN (Reason: chest pain) Qty: 30 2RF Rx Instructions: do not exceed 3 doses per episode furosemide [Lasix] 20 mg tablet 20 mg PO DAILY PRN (Reason: edema) Qty: 30 2RF levothyroxine 75 mcg capsule 75 mcg PO DAILY Qty: 30 2RF atorvastatin 40 mg tablet 40 mg PO DAILY Qty: 30 2RF Discharge Orders: Discharge ED (Routine); Ordered 10/11/24 Ordered By: Dunia Phillips Referrals: Isamar Castillo FNP-C [Primary Care Provider, Family Practice] Activity Restrictions/Additional Instructions: As we discussed, your ultrasound today was negative for a blood clot/DVT. You can follow-up with your primary care provider for further evaluation of symptoms. Print Language: Mohawk Coding Level of Care Code ED Chief Innovation Officer for Rob French
[2024-10-11 15:59] VITALS: BP 152/92; PULSE 90; O2SAT 94
== END 2024-10-11 16:00 | disposition home or self-care (01) ==
PROVIDERS: Emergency Provider Physician Assistant; PCP Nurse Practitioner Family
DX: R60.0 Localized edema (principal); Z72.0 Tobacco use; E78.5 Hyperlipidemia, unspecified
CPT/HCPCS: 93971; 99284

== ENCOUNTER → 2024-10-18 14:06 | Outpatient (BNVA) | payer MEDICARE, MEDICAID, SELFPAY | PROVIDERS: PCP Nurse Practitioner Family; Visit Provider Internal Medicine Cardiovascular Disease | DX: I49.9 Cardiac arrhythmia, unspecified (principal); I10 Essential (primary) hypertension; E78.5 Hyperlipidemia, unspecified; R60.0 Localized edema; F17.200 Nicotine dependence, unspecified, uncomplicated | CPT/HCPCS: 99214 ==